=== PATIENT | male | born 1950 | race Caucasian/White ===

== ENCOUNTER 2022-07-09 06:28 | Day surgery (SDC) | payer MEDICARE ==
[2022-07-03 10:46] LABS: BASOPHILS % (AUTO) 0.4 % (0-1); EOSINOPHILS # (AUTO) 0.7 X10'3 (0-0.9); EOSINOPHILS % (AUTO) 6.9 % (0-6); HEMATOCRIT 43.8 % (42.0-52.0); HEMOGLOBIN 14.6 g/dl (14.0-17.9); LYMPHOCYTES # (AUTO) 3.1 X10'3 (1.1-4.8); MEAN CORPUSCULAR HGB CONC 33.4 g/dL (33.0-36.5); MEAN CORPUSCULAR VOLUME 86.7 FL (78-98); MEAN PLATELET VOLUME 6.9 FL (7.4-10.4); MONOCYTES # (AUTO) 0.6 X10'3 (0-0.9); MONOCYTES % (AUTO) 5.9 % (2-12); NEUTROPHILS # (AUTO) 5.8 X10'3 (1.8-7.7); NEUTROPHILS % (AUTO) 56.8 % (42-75); PLATELET COUNT 265 X10'3 (140-440); RED BLOOD COUNT 5.05 X10'6 (4.70-6.10); WHITE BLOOD COUNT 10.3 X10'3 (4.5-11.0)
[2022-07-03 10:57] LABS: APTT 26 SECONDS (22-32)
[2022-07-03 11:11] LABS: ALANINE AMINOTRANSFERASE 51 U/L (12-78); ALBUMIN 3.4 G/DL (3.4-5.0); ALBUMIN/GLOBULIN RATIO 0.9 (1.1-1.5); ALKALINE PHOSPHATASE 76 IU/L (46-116); ANION GAP 11 (8-16); ASPARTATE AMINO TRANSFERASE 46 U/L (10-37); BILIRUBIN,TOTAL 0.4 MG/DL (0.1-1.0); BLOOD UREA NITROGEN 33 MG/DL (7-18); BUN/CREATININE RATIO 22.1 (5.4-32.0); CALCIUM 9.5 MG/DL (8.5-10.1); CHLORIDE 104 MMOL/L (99-107); CREATININE 1.49 MG/DL (0.60-1.10); GLUCOSE 141 MG/DL (70-104); POTASSIUM 3.9 MMOL/L (3.5-5.1); SODIUM 138 MMOL/L (135-145); TOTAL CARBON DIOXIDE 23.1 MMOL/L (24-32); TOTAL PROTEIN 7.3 G/DL (6.4-8.2); eGFR 46 ML/MIN
[~2022-07-09] VITALS: Ht 177.8 cm; Wt 111.3 kg
[2022-07-09] VITALS (13 sets, daily range): BP systolic 116–150; BP diastolic 53–87
[2022-07-09] MEDS ORDERED: LORazepam 0.5 MG tablet PO PRN (06:50)
[2022-07-09] MEDS ORDERED: nitroGLYCERIN 0.4mg SUBLingual tab SL PRN ×2 (06:50→11:00)
[2022-07-09] MEDS ORDERED: diphenhydrAMINE 25mg capsule PO PRN (06:50)
[2022-07-09] MEDS ORDERED: normal saline 1,000 ML IV SCH (06:50)
[2022-07-09] MEDS ORDERED: DILT240C90 PO (07:00)
[2022-07-09] MEDS ORDERED: CLOP-32 PO (07:00)
[2022-07-09] MEDS ORDERED: TRIA1CAP88 PO (07:00)
[2022-07-09] MEDS ORDERED: ALLO100T PO (07:00)
[2022-07-09] MEDS ORDERED: ASPI-1264 PO (07:00)
[2022-07-09] MEDS ORDERED: ATEN50TA PO (07:00)
[2022-07-09] MEDS ORDERED: FENO145T38 PO (07:00)
[2022-07-09] MEDS ORDERED: OMEG-5 PO (07:00)
[2022-07-09] MEDS ORDERED: TACR0.5C20 PO (07:00)
[2022-07-09] MEDS ORDERED: pneumococcal 23-VAL P-sac vacc 25 mcg/0.5ml vial IMVAC ONE (08:15)
[2022-07-09] MEDS ORDERED: midazolam 1 mg/ML 2ml injection ONE ×2 (09:16→10:07)
[2022-07-09] MEDS ORDERED: LIDOcaine 1% 30ml preserv. free vial ONE (09:16)
[2022-07-09] MEDS ORDERED: fentaNYL/PF 50MCG/1 ML 2ML syringe ONE ×2 (09:16→10:06)
[2022-07-09] MEDS ORDERED: iohexol 350 MG/ML 50ML vial IV ONE ×3 (09:17→10:09)
[2022-07-09] MEDS ORDERED: iohexol 350MG/ML 100ml bottle IV ONE (09:17)
[2022-07-09] MEDS ORDERED: normal saline 1000ml 1,000 ML IV SCH (10:55)
[2022-07-09] MEDS ORDERED: ondansetron/PF 4mg/2ml inj IV PRN (10:55)
[2022-07-09] MEDS ORDERED: proCHLORperazine 10 MG/2 ml inj IV PRN (11:00)
[2022-07-09] MEDS ORDERED: HYDROcodone/acetaminophen 10/325mg tab PO PRN (11:00)
[2022-07-09] MEDS ORDERED: OXAZEpam 15mg capsule PO PRN (11:00)
[2022-07-09] MEDS ORDERED: HYDROcodone/acetaminophen 5mg/325mg tablet PO PRN (11:00)
== END 2022-07-09 17:00 | disposition home or self-care (01) ==
LOC: SSTAY O 06:28
PROVIDERS: ATTEND Internal Medicine Cardiovascular Disease
DX: R94.39 Abnormal result of other cardiovascular function study (principal); I25.10 Atherosclerotic heart disease of native coronary artery without angina pectoris; I10 Essential (primary) hypertension; J44.9 Chronic obstructive pulmonary disease, unspecified; I73.9 Peripheral vascular disease, unspecified; E78.5 Hyperlipidemia, unspecified; C44.90 Unspecified malignant neoplasm of skin, unspecified; R07.9 Chest pain, unspecified; Z23 Encounter for immunization; Z94.4 Liver transplant status; Z96.652 Presence of left artificial knee joint; Z87.891 Personal history of nicotine dependence; Z79.82 Long term (current) use of aspirin; Z79.899 Other long term (current) drug therapy
CPT/HCPCS: 36415; 71046; 80053; 84439; 84443; 84480; 85025; 85610; 85730; 90732; 93005; 93458; 93567; 99152; 99153; C1760; C1769; J1644; J2250; J3010; J3490; J7030; Q0163; Q9967; A6258